=== PATIENT | male | born 1990 | race Caucasian/White ===

== ENCOUNTER 2022-06-03 15:58 | Emergency (ER) | payer BC, SELFPAY ==
[2022-06-03 16:47] LABS: Hemoglobin 16.5 g/dL (13.5-17.5); Mean Corpuscular HGB CONC 33.9 g/dL (32.0-36.0); Mean Corpuscular Hemoglobin 29.7 pg (27.0-33.0); Mean Corpuscular Volume 87.7 fl (81.2-95.1); Mean Platelet Volume 8.7 fl (7.4-10.4); Platelet Count 256 10x3/uL (150-450); RBC Distribution Width 12.8 % (11.5-14.5); Red Blood Cell (RBC) Count 5.55 10x6/uL (4.32-5.72); White Blood Cell (WBC) Count 20.5 10x3/uL (3.5-10.5)
[2022-06-03 16:58] LABS: MDiff Complete? YES
[2022-06-03 17:10] LABS: ALT (SGPT) 19 U/L (8-55); AST (SGOT) 12 U/L (5-34); Albumin 4.6 g/dL (3.5-5.0); Alkaline Phosphatase 76 U/L (40-110); Anion Gap 16 mmol/L (10-20); BUN (Urea Nitrogen) 10 mg/dL (8.9-20.6); Bilirubin, Total 1.2 mg/dL (0.2-1.2); Calc. Creatinine Clearance 0 mL/min (70-130); Calcium 9.9 mg/dL (7.8-10.44); Carbon Dioxide 24 mmol/L (22-29); Chloride 101 mmol/L (98-107); Estimated GFR 104; Globulin 3.2 g/dL (2.4-3.5); Glucose 103 mg/dL (70-105); Lipase 13 U/L (8-78); Potassium 3.9 mmol/L (3.5-5.1); Protein, Total 7.8 g/dL (6.0-8.3); Sodium 137 mmol/L (136-145)
[2022-06-03] MEDS ORDERED: Ondansetron PF 4 MG/2 ML Vial ONE ×2 (17:11→19:24)
[2022-06-03] MEDS ORDERED: Morphine 4 MG/ML VIAL ONE (17:11)
[2022-06-03 17:18] LABS: Band 3 % (5-11); Lymphocytes 17 % (21-51); Monocytes 10 % (0-10); Neutrophil 70 % (42-75)
[2022-06-03 17:19] LABS: Platelet Morphology Comment Appears Adequate
[2022-06-03 17:24] LABS: Bilirubin Neg (Negative); Blood, Urine Negative (Negative); Clarity Clear (Clear); Glucose, Urine (Dipstick) Normal (Negative); Ketone, Urine Negative (Negative); Leukocyte 25 (Negative); Nitrite Negative (Negative); Protein, Urine (Dipstick) 15 mg/dl (Neg-Trace); Urobilinogen Normal mg/dL (Less than 2)
[2022-06-03] MEDS ORDERED: Meropenem 500 MG VIAL ONE (17:43)
[2022-06-03 17:53] LABS: Bacteria/HPF None Seen HPF (None Seen); RBC/HPF None Seen HPF (0-3); Squamous Epithelial 0-3 HPF (0-3); WBC/HPF 0-3 HPF (0-3)
[2022-06-03] MEDS ORDERED: Bupivacaine/Epinephrine 0.25% 30 ML VIAL ONE (18:22)
[2022-06-03] MEDS ORDERED: Lidocaine 1% PF 5 ML VIAL ONE (19:24)
[2022-06-03] MEDS ORDERED: Dexamethasone 4 mg/ml Vial ONE (19:24)
[2022-06-03] MEDS ORDERED: PROPOFOL 20 ML ONE (19:24)
[2022-06-03] MEDS ORDERED: Sodium Chloride 0.9% 10 ML ONE (19:25)
[2022-06-03] MEDS ORDERED: Ketorolac Tromethamine 30 MG/ML VIAL ONE ×2 (19:25→20:38)
[2022-06-03] MEDS ORDERED: Succinylcholine 200 MG/10 ml SYRINGE FS ONE (19:25)
[2022-06-03] MEDS ORDERED: Vecuronium 10 MG VIAL ONE (19:25)
[2022-06-03] MEDS ORDERED: Fentanyl 100 MCG/2 ML VIAL ONE ×3 (21:06→22:53)
[2022-06-03] MEDS ORDERED: Bupivacaine HCl 0.5%/Epinephrine 1:200,000/PF 30 ml Vial ONE (22:07)
[2022-06-03] MEDS ORDERED: Glycopyrrolate 0.2 MG/ML 5 ML SYRINGE ONE (22:49)
[2022-06-03] MEDS ORDERED: Meperidine HCl/PF 25 MG/ML VIAL ONE (23:38)
[2022-06-04 19:46] LABS: Chlam.trachomatis by PCR,Urine Not Detected (NotDetected); GC N.gonorrhoeae PCR,UrineVOID Not Detected (NotDetected)
== END 2022-06-03 19:48 | disposition admitted as inpatient to this hospital (09) ==
LOC: CSHERS 15:58
PROC: 0DTJ4ZZ Resection of Appendix, Percutaneous Endoscopic Approach (ICD-10-PCS; principal; 2022-06-03)
DX: K35.80 Unspecified acute appendicitis (principal); Z88.0 Allergy status to penicillin
CPT/HCPCS: 74177; 76870; 80053; 81003; 81015; 83690; 85025; 87070; 87077; 87186; 87205; 87491; 87591; 88304; 93976; 96361; 96365; 96375; J1100; J1885; J2175; J2185; J2270; J2405; J2704; J3010